=== PATIENT | female | born 1995 | race Caucasian/White ===

== ENCOUNTER 2021-12-30 15:15 | Emergency (ER) | payer OTHER, SELFPAY ==
[2021-12-30 15:17] VITALS: BP 174/112; PULSE 97; RESP 16; TEMP 36.8; O2SAT 99; BMI 43.5
--- NOTE | 2021-12-30 15:35 | RAD_ITS ---
HISTORY Injury/Pain. TECHNIQUE: XR Hand Min 3 Views. COMPARISON: None. FINDINGS: BONES : No acute fracture identified. Mineralization unremarkable. JOINTS: No dislocation. Joint spaces maintained. RAD/Hand Min 3 Views IMPRESSION: No acute fracture or dislocation identified in the right hand. Electronically Signed: Nikky Johns MD at 16:13 EDT ,
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
[2021-12-30 17:23] VITALS: PULSE 79; O2SAT 99
== END 2021-12-30 17:25 | disposition home or self-care (01) ==
PROVIDERS: Emergency Provider Emergency Medicine; Visit Provider Emergency Medicine
DX: S60.221A Contusion of right hand, initial encounter (principal); E66.01 Morbid (severe) obesity due to excess calories; Z68.41 Body mass index [BMI] 40.0-44.9, adult; F17.290 Nicotine dependence, other tobacco product, uncomplicated; W22.09XA Striking against other stationary object, initial encounter; M79.7 Fibromyalgia; K58.9 Irritable bowel syndrome, unspecified
CPT/HCPCS: 73130; 99282

== ENCOUNTER 2022-05-15 08:44 | Emergency (ER) | payer OTHER, MEDICAID, SELFPAY ==
[2022-05-15 08:45] VITALS: BP 134/105; PULSE 127; RESP 16; TEMP 36.5; O2SAT 96; BMI 41.7
--- NOTE | 2022-05-15 09:03 | EDS_ITS ---
HPI History of Present Illness Chief Complaint: Allergic Reaction Informant: patient Narrative Narrative: Presents for concerns of allergic reaction after receiving flu vaccine 3 AM. 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 No lip or tongue swelling. No medications taken. 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 She had a similar reaction when she was younger with just itching. Last year only had headache. Today does have a headache also. No fevers. She did not eat any food afterwards. History of rheumatoid arthritis currently not on immunosuppressive's last use was 3 months ago. History of GERD hypertension hypothyroidism. Prior similar symptoms: Yes [employer] [facility] Medical History Arthritis Fibromyalgia Hypothyroid IBS (irritable bowel syndrome) Home Medications diphenhydramine HCl 25 mg capsule (Benadryl) 25 mg PO TID PRN itching #30 caps 05/15/22 [Rx Last Taken Unknown] levothyroxine 150 mcg tablet 150 mcg PO DAILY 05/15/22 [History Last Taken Unknown] lisinopril 10 mg tablet 10 mg PO DAILY 05/15/22 [History Last Taken Unknown] omeprazole 20 mg capsule,delayed release 20 mg PO DAILY 05/15/22 [History Last Taken Unknown] prednisone 20 mg tablet 60 mg PO DAILY #12 tabs 05/15/22 [Rx Last Taken Unknown] Allergy/AdvReac Type Severity Reaction Status Date / Time cefdinir [From Omnicef] Allergy Hives Verified 05/15/22 08:45 Sulfa (Sulfonamide Allergy Hives Verified 05/15/22 08:45 Antibiotics) Social History Smoking Status: Current some day smoker tobacco type: e-cigarettes ROS ROS ED Constitutional Constitutional ED: Denies chills, fever(s) or sweats Eyes Eyes: Denies change in vision ENT ENT ED: Denies dysphagia or sore throat Cardiovascular Cardiovascular: Denies chest pain, leg edema, palpitations or racing heartbeat Respiratory/Chest Respiratory/Chest: Denies cough, dyspnea or dyspnea on exertion Gastrointestinal Gastrointestinal: Denies abdominal pain, diarrhea, nausea or vomiting Genitourinary Genitourinary ED: Denies dysuria, hematuria or urinary frequency Musculoskeletal Musculoskeletal: Denies back pain, extremity pain or neck pain Integumentary Reports rash; Denies wounds Neurologic Neurologic: Reports headache(s); Denies paresthesias or weakness EXAM Physical Exam Const Vital Signs: 05/15/22 08:45 05/15/22 11:42 Temperature 97.7 F L Temperature Source Temporal Pulse Rate 127 H 80 Respiratory Rate 16 16 Blood Pressure 134/105 H Blood Pressure Mean 114 Pulse Ox 96 97 Oxygen Delivery Method Room Air Positive well nourished and well developed General Appearance ED: well developed and NAD HEENT Reports moist mucous membranes HEENT Narrative: No lip or tongue swelling, airway patent. No stridor. normocephalic and atraumatic Eyes PERRL, EOMs intact bilaterally and conjunctivae normal General Eye ED: Yes normal appearance of both eyes Neck no lymphadenopathy and supple General: Negative for tenderness Chest Wall Chest: Negative for tenderness Resp normal respiratory effort and normal air movement Effort and Inspection: symmetric chest movement; Negative for respiratory distress Cardio regular rhythm and no murmurs Rate: tachycardic Peripheral Pulses: pulses 2+ throughout GI normal to inspection, nondistended, normoactive bowel sounds and non-tender Palpation: Negative for guarding or rebound tenderness present Back/Spine no CVA tenderness and no thoracic nor lumbar tenderness Extremity normal to inspection General Extremety ED: Negative for edema or tenderness General Extremity: Negative for edema Neuro oriented x3 and no sensory deficits noted Sensorium / Orientation: awake and alert Skin no wounds Skin Narrative: Erythema bilateral arms mild in the lower legs. No urticaria. Left shoulder no visualized puncture site or urticaria from area of injection. MDM MDM MDM Narrative Medical decision making narrative: Itchy rash generalized after influenza vaccine. There is no lip or tongue swelling. Oral Benadryl and prednisone given monitored improving symptoms. We will continue these medicines with his prescription. Outpatient follow-up. All questions were answered. Discharge Plan Triage Chief Complaint: Allergic Reaction ED Provider: Carlos Orellana Dx/Rx/DC Orders Clinical Impression: Allergic reaction, Adverse effect of influenza vaccine, Rash Instructions: ED ADVERSE DRUG REACTION Allergic Prescriptions: New prednisone 20 mg tablet 60 mg PO DAILY Qty: 12 0RF diphenhydramine HCl [Benadryl] 25 mg capsule 25 mg PO TID PRN (Reason: itching) Qty: 30 0RF No Action lisinopril 10 mg tablet 10 mg PO DAILY Label Comments: take 1 tablet by mouth once daily levothyroxine 150 mcg tablet 150 mcg PO DAILY Label Comments: take 1 tablet by mouth once daily omeprazole 20 mg capsule,delayed release(DR/EC) 20 mg PO DAILY Label Comments: take 1 capsule by mouth once daily Primary Care Provider: Care Physician,No Primary Referrals: Romelia Perez MD [Med Staff - Cloth Printer] - 3-5 Days Assessment,Health Risk [Non-Staff] - Disposition Disposition: Home, Self Care Discharge Date/Time: 05/15/22 11:43
[2022-05-15] MEDS: predniSONE 20 MG Tablet 60 MG PO (09:39)
[2022-05-15] MEDS: DiphenhydrAMINE 25 MG Capsule 50 MG PO (09:39)
[2022-05-15 11:42] VITALS: PULSE 80; RESP 16; O2SAT 97
== END 2022-05-15 11:43 | disposition home or self-care (01) ==
PROVIDERS: Emergency Provider Emergency Medicine; Visit Provider Emergency Medicine
DX: T80.62XA Other serum reaction due to vaccination, initial encounter (principal); M06.9 Rheumatoid arthritis, unspecified; T50.B95A Adverse effect of other viral vaccines, initial encounter; F17.290 Nicotine dependence, other tobacco product, uncomplicated
CPT/HCPCS: 99283

== ENCOUNTER 2022-05-27 17:30 | Emergency (ER) | payer OTHER, MEDICAID, SELFPAY ==
[2022-05-27 17:31] VITALS: BP 184/125; PULSE 136; RESP 18; TEMP 36.6; O2SAT 97; BMI 47.5
--- NOTE | 2022-05-27 17:49 | RAD_ITS ---
STUDY: X-RAY - RIGHT FOOT CLINICAL: Female, 26 years old. Lateral ankle pain after twisting injury. TECHNIQUE: 3 view(s) of the foot. COMPARISON: Right ankle, 05/27/2022. FINDINGS: Normal talus, calcaneus, and tarsal bones. Normal visualized subtalar, talonavicular, calcaneocuboid, tarsal and tarsometatarsal articulations. Normal metatarsi. Normal metatarsophalangeal joint of the great toe. Normal tibial and fibular sesamoid bones. Normal interphalangeal joint of the great toe. Normal phalanges of the great toe. Normal second through fifth metatarsophalangeal joints. Normal interphalangeal joints and phalanges of the lesser toes. There is soft tissue swelling over the lateral ankle. RAD/Foot min 3 Views IMPRESSION: Normal x-ray examination of the right foot. This is associated lateral ankle swelling. Electronically Signed: Miguel Acosta DO at 18:33 EDT ,
--- NOTE | 2022-05-27 17:49 | RAD_ITS ---
STUDY: X-RAY - RIGHT ANKLE REASON FOR EXAM: Female, 26 years old. Injury. Lateral ankle pain after twisting ankle. History of multiple sprains. TECHNIQUE: There are view(s) of the ankle. COMPARISON: Right foot, 05/27/2022. FINDINGS: Normal visualized distal tibia and fibula. Normal medial and lateral malleoli. Normal tibiotalar articulation and ankle mortise. Normal visualized talus and calcaneus. The visualized subtalar, talonavicular, calcaneocuboid and tarsal articulations are normal. There is anterolateral soft tissue swelling consistent with sprain. RAD/Ankle min 3 Views IMPRESSION: Soft tissue injury without fracture or dislocation. Electronically Signed: Miguel Acosta DO at 18:29 EDT ,
[2022-05-27] MEDS: Naproxen 250 MG Tablet 500 MG PO (17:53)
[2022-05-27] MEDS: traMADol 50 MG Tablet PO (17:53)
--- NOTE | 2022-05-27 18:47 | EDS_ITS ---
HPI History of Present Illness Chief Complaint: Lower Extremity Injury Informant: patient Occured/Mechanism Mechanism/Context: Yes fall Onset/Context/Timing Onset: Today Context: Sudden Onset Timing: Continuous Quality of Pain: Aching Location: R ankle Current Severity: Severe Maximum Severity: Severe Worsened by: movement Relieved by: remaining still Associated Symptoms Associated Symptoms: Negative for Parasthesia or Weakness Narrative Narrative: Patient was coming down steps she was maybe 4 steps up, dog got in the way, to avoid she jumped down 3-4 steps to the floor forcibly inverting her right ankle and feeling a crunch/pop. Not able to bear weight at the time of injury nor now. No other injury. [facility] Medical History Arthritis Fibromyalgia Hypothyroid IBS (irritable bowel syndrome) Home Medications diphenhydramine HCl 25 mg capsule (Benadryl) 25 mg PO TID PRN itching #30 caps 05/15/22 [Rx Last Taken Unknown] levothyroxine 150 mcg tablet 150 mcg PO DAILY 05/15/22 [History Last Taken Unknown] lisinopril 10 mg tablet 10 mg PO DAILY 05/15/22 [History Last Taken Unknown] omeprazole 20 mg capsule,delayed release 20 mg PO DAILY 05/15/22 [History Last Taken Unknown] prednisone 20 mg tablet 60 mg PO DAILY #12 tabs 05/15/22 [Rx Last Taken Unknown] Allergy/AdvReac Type Severity Reaction Status Date / Time cefdinir [From Omnicef] Allergy Hives Verified 05/27/22 17:31 Sulfa (Sulfonamide Allergy Hives Verified 05/27/22 17:31 Antibiotics) Social History Smoking Status: Current some day smoker tobacco type: e-cigarettes ROS ROS ED Constitutional Constitutional ED: Denies chills or fever(s) Musculoskeletal Musculoskeletal: Reports extremity pain; Denies neck pain Integumentary Denies Abrasions, rash or wounds Neurologic Neurologic: Denies paresthesias or weakness EXAM Physical Exam Const Vital Signs: 05/27/22 17:31 Temperature 98 F Temperature Source Temporal Pulse Rate 136 H Respiratory Rate 18 Blood Pressure 184/125 H Blood Pressure Mean 144 Pulse Ox 97 Oxygen Delivery Method Room Air Positive well nourished and well developed General Appearance ED: well developed and NAD Neck full ROM and supple Back/Spine normal ROM and normal to inspection Extremity Extremity Narrative: Swelling and tenderness about the right lateral malleolus, minimally tender to medial malleolus, nontender proximal fibula and other bony prominences of the lower leg. Mildly tender at the base of the fifth metatarsal but nowhere else in the foot. Significant tenderness with any movement around the ankle or foot. Intact dorsalis pedis pulse. Neuro oriented x3, no focal motor deficits and no sensory deficits noted Sensorium / Orientation: alert Psych mental status grossly normal and thought process normal Skin no wounds Rashes: no rashes MDM MDM MDM Narrative Medical decision making narrative: Three-view x-ray series of the right ankle and 3 view x-ray series of the right foot both negative on my interpretation radiology in agreement except for the soft tissue swelling noted clinically. She will be offered crutches, stirrup, analgesics here and outpatient follow-up. Radiography Diagnostic Testing: Clinical Impression(s) from Imaging Studies Ankle X-Ray 05/27/22 17:49 IMPRESSION: Soft tissue injury without fracture or dislocation. Electronically Signed: Miguel Acosta DO at 18:29 EDT Reading Location ID and State: [employer] / [employer] Tel [phone], Service support , Foot X-Ray 05/27/22 17:49 IMPRESSION: Normal x-ray examination of the right foot. This is associated lateral ankle swelling. Electronically Signed: Miguel Acosta DO at 18:33 EDT Reading Location ID and State: [employer] / [place] Tel [phone], Service support , Discharge Plan Triage Chief Complaint: Lower Extremity Injury ED Provider: Stone Montesinos Dx/Rx/DC Orders Clinical Impression: Right ankle sprain Instructions: ED Ankle Sprain (Adult) Prescriptions: No Action lisinopril 10 mg tablet 10 mg PO DAILY Label Comments: take 1 tablet by mouth once daily levothyroxine 150 mcg tablet 150 mcg PO DAILY Label Comments: take 1 tablet by mouth once daily omeprazole 20 mg capsule,delayed release(DR/EC) 20 mg PO DAILY Label Comments: take 1 capsule by mouth once daily prednisone 20 mg tablet 60 mg PO DAILY Qty: 12 0RF diphenhydramine HCl [Benadryl] 25 mg capsule 25 mg PO TID PRN (Reason: itching) Qty: 30 0RF Primary Care Provider: Haider Hollins NP Referrals: Haider Hollins NP, MARINE SERVICES TECHNICIAN-C [Primary Care Provider] - 10-14 Days if not better Disposition Disposition: Home, Self Care
== END 2022-05-27 19:16 | disposition home or self-care (01) ==
PROVIDERS: Emergency Provider Emergency Medicine; PCP Nurse Practitioner Family; Visit Provider Emergency Medicine
DX: S93.401A Sprain of unspecified ligament of right ankle, initial encounter (principal); F17.290 Nicotine dependence, other tobacco product, uncomplicated; W19.XXXA Unspecified fall, initial encounter
CPT/HCPCS: 73610; 73630; 99284

== ENCOUNTER 2022-06-08 10:11 | Outpatient (CLI) | payer OTHER, MEDICAID, SELFPAY ==
[2022-06-08 14:26] LABS: Vitamin B12 272 pg/mL (211-911)
== END 2022-06-08 23:59 | disposition home or self-care (01) ==
LOC: BIMLAB 10:13
PROVIDERS: PCP Nurse Practitioner Family; Referring Provider Nurse Practitioner Family; Visit Provider Nurse Practitioner Family
DX: M06.9 Rheumatoid arthritis, unspecified (principal); E56.9 Vitamin deficiency, unspecified
CPT/HCPCS: 82306; 82607

== ENCOUNTER → 2022-06-13 | Outpatient (CLI) | payer OTHER, MEDICAID, SELFPAY ==
[2022-06-13 18:17] LABS: Chlamydia Trachomatis by PCR Negative (Negative); Neisserai gonorrhoeae by PCR Negative (Negative); Probe Check PASS; Sample Adequacy Control PASS; Specimen Processing Control PASS
== END | disposition home or self-care (01) ==
LOC: LABSPEC 15:37
PROVIDERS: PCP Nurse Practitioner Family; Visit Provider Registered Nurse
DX: Z11.3 Encounter for screening for infections with a predominantly sexual mode of transmission (principal)
CPT/HCPCS: 87491; 87591

== ENCOUNTER → 2022-06-23 | Outpatient (CLI) | payer OTHER, MEDICAID, SELFPAY ==
--- NOTE | 2022-06-23 08:40 | MRI_ITS ---
STUDY: MRI RIGHT ANKLE WITHOUT CONTRAST REASON FOR EXAM: Female, 26 years old. OTHER INSTABILITY, RIGHT ANKLE TECHNIQUE: Standardized fat and water weighted pulse sequences were obtained in all 3 orthogonal planes. COMPARISON: None. FINDINGS: Normal subcutis adipose space. There is marrow edema in the medial side of the navicular, series 10 image There is tendinosis with thickening and partial tear of the distal posterior tibialis tendon. Normal flexor digitorum longus tendon. Normal flexor hallucis longus tendon. Normal peroneus longus and brevis tendons. Normal tibialis anterior tendon. Normal extensor hallucis longus tendon. Normal extensor digitorum longus tendons. Normal Achilles tendon and teno-osseous insertion. Normal plantar fascia. Normal plantar calcaneal tubercles. Normal intrinsic muscles of the rearfoot. Normal distal tibiofibular syndesmotic ligamentous complex. Normal lateral ligamentous complex. Normal subtalar ligaments and sinus tarsi. Normal deltoid ligamentous complexes. Normal plantar calcaneonavicular (spring) ligament. There is small joint effusion of the tibiotalar articulation. Normal talar dome. There is os trigonum. Normal subtalar articulations. Normal talonavicular articulation. Normal calcaneocuboid articulation. Normal navicular-cuneiform articulations. MRI/Lower Ext Joint Only (Routine) IMPRESSION: Tendinosis with partial tear of the distal tibialis posterior. Contusion versus stress injury/fracture of the navicular. Electronically Signed: Stone Cook MD at 14:00 EST ,
== END | disposition home or self-care (01) ==
LOC: MRI 07:45
PROVIDERS: PCP Nurse Practitioner Family; Referring Provider Podiatrist; Visit Provider Podiatrist
DX: M25.371 Other instability, right ankle (principal); M24.871 Other specific joint derangements of right ankle, not elsewhere classified
CPT/HCPCS: 73721

== ENCOUNTER → 2022-07-25 | Outpatient (CLI) | payer OTHER, MEDICAID, SELFPAY ==
[2022-08-03 13:58] LABS: HPV Reflexed? NOT INDICATED
== END | disposition home or self-care (01) ==
LOC: LABSPEC 15:44
PROVIDERS: PCP Nurse Practitioner Family; Visit Provider Registered Nurse
DX: Z12.4 Encounter for screening for malignant neoplasm of cervix (principal)
CPT/HCPCS: 88175; G0145

== ENCOUNTER → 2022-09-03 | Outpatient (CLI) | payer OTHER, MEDICAID, SELFPAY ==
--- NOTE | 2022-09-03 16:00 | CT_ITS ---
Examination: Right lower extremity CTA. INDICATION: Injured ankle 3 months ago from fall. TECHNIQUE: multiple axial images of the right lower extremity were obtained. Reformatted sagittal and coronal images were obtained and reviewed. A radiation dose optimization technique was used for this scan. COMPARISON: Radiographs dated May 27, 2022 and MRI dated June 23, 2022 FINDINGS: Within normal limits visualized distal tibia and fibula. Normal medial and lateral malleoli. Normal tibiotalar articulation and ankle mortise. Normal visualized talus and calcaneus. The subtalar, talonavicular, calcaneocuboid and tarsal articulations are within normal limits. No suspicious bony lesions are seen. No acute fracture or dislocation. No discrete fluid collections. CT/Extremity Lower without Contra IMPRESSION: Within normal limits examination. Electronically Signed: Laura Javed MD at 9:54 EST ,
== END | disposition home or self-care (01) ==
LOC: CT 15:58
PROVIDERS: PCP Nurse Practitioner Family; Referring Provider Podiatrist; Visit Provider Podiatrist
DX: S82.64XA Nondisplaced fracture of lateral malleolus of right fibula, initial encounter for closed fracture (principal)
CPT/HCPCS: 73700

== ENCOUNTER 2022-10-15 12:00 | Outpatient (RCR) | payer OTHER, MEDICAID, SELFPAY ==
--- NOTE | 2022-08-30 13:35 | HP.PTEVAL_ITS ---
Patient's Visit Information SHRAVAN SMITH is a 26 year old F referred to Physical Therapy by Dr. Ced Romero DPM with a diagnosis of Right ankle instability. Date of Evaluation: 08/30/22 Physical Therapist: Noé Nicolas - Visit Plan Frequency: 2-3x /Week Duration: 6 Weeks Plan: Continue to work on improving right ankle ROM, ankle strength, and balance. Use manual therapy and modalities as needed for pain control. - Subjective Pt. is a 26 y.o. female who originally injured her right ankle on 05-27-22 when she was going down the stairs and her sister's dog got under her and she tripped and fell. She eventually had imaging which showed distal fibula fracture. She notes that her ankle has been bothering her and painful ever since. Pt. is currently in a CAM boot when she is working or on her feet for a long period of time. Her PLOF includes history of multiple bilateral ankle sprains in the past. Pt. denies any other recent falls. She has difficulty with walking, standing for long periods of time, walking on uneven ground, ascending/descending stairs, squatting, driving, housework, and work activity. 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 Her goal with physical therapy is to get out of the boot and to be able to function normally. She has not had any recent physical therapy since her injury. Pt. rates lateral right ankle pain at 8/10 currently, at worst 9/10, at best 3/10 and describes the pain as throbbing and sharp. Pt. is currently taking Tramadol or Tylenol as needed. 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 Pt. lives with her sister, sister's boyfriend, and her dad in a two story home. Her hobbies include playing video games and reading. - Objective Palpation- Tenderness over right distal lateral malleolus and ATFL and calcaneal fibular ligaments. Left AROM DF 12 degrees, PF 40 degrees, Inv 43 degrees, Ev 23 degrees. Right AROM DF 5 degrees, PF 38 degrees, Inv 15 degrees, Ev 8 degrees. Left ankle strength DF [5/5], PF [5/5], Inv [5/5], Ev [5/5]. Right ankle strength DF [3-/5], PF [3/5], Inv [3-/5], Ev [3/5]. Left hip strength fle xion [5/5], abduction [5/5], adduction [5/5], extension [5/5], knee flexion [5/5], knee extension [5/5]. Right hip strength flexion [5/5], abduction [5/5], adduction [5/5], extension [5/5], knee flexion [5/5], knee extension [5/5]. Special tests- Anterior drawer [+], Talar tilt [+], Syndemosis squeeze [-]. Tandem stance on right [30 secs], left [30 secs]. SLS on right [4 secs], left [30 secs]. Gait- Pt. ambulates with CAM boot of right lower extremity. Stairs- Pt. ascends/descends stairs with step to gait pattern and unilateral handrail. - Balance/Special Test Scores Lower Extremity Functional Score: 9 - Goals Goal 1:: Pt. will improve right ankle DF > 10 degrees in order to improve gait mechanics. Goal Time Frame: 4-6 Weeks Goal 2:: Pt. will be able to ambulate with no CAM boot or gait deviations. Goal Time Frame: 4-6 Weeks Goal 3:: Pt. will improve right ankle strength to 4/5 for all motions in order to improve ADL's. Goal Time Frame: 4-6 Weeks Goal 4:: Pt. will be able to stand/walk at least 20 minutes with right ankle pain < 5/10. Goal Time Frame: 4-6 Weeks Goal 5:: Pt. will be able to complete a full day of work activity with right ankle < 5/10. Goal Time Frame: 4-6 Weeks Goal 6:: Pt. will improve LEFS score <60% disability in order to improve ADL's and work activity. Goal Time Frame: 4-6 Weeks - Rehabilitation Potential Physical Therapy Diagnosis: Decreased right ankle ROM, LE strength, balance, and pain Rehabilitation Potential: Good - Anticipated Interventions Patient/Client Instruction: Educate patient on: Condition, Plan of Care, Benefits of Fitness Program For the Purpose of:: To decrease pain, To increase ROM, To improve ability to perform ADL's, To improve performance and independence with ADL's, To increase flexibility/ROM, To improve balance, To improve safety with gait, To assume or resume ADL's, To improve tolerance to ADL's Therapeutic Exercise to Include: Strength training, Balance training, Gait and locomotor training, Passive ROM, Active ROM Comment: Focus on improving right ankle ROM, ankle strengthening, and balance. For the Purpose of:: To decrease pain, To decrease swelling/inflammation, To increase ROM, To improve ability to perform ADL's, To improve performance and independence with ADL's, To improve gait and locomotor functions, To increase flexibility/ROM, To improve balance, To improve safety with gait, To assume or resume ADL's, To improve safety, To improve tolerance to ADL's Functional Training to Include: ADL Training, Gait training For the Purpose of:: To decrease pain, To increase ROM, To improve ability to perform ADL's, To improve performance and independence with ADL's, To increase flexibility/ROM, To assume or resume ADL's, To improve tolerance to ADL's Manual Therapy Techniques to Include: Mobilization, Soft tissue mobilization For the Purpose of:: To decrease pain, To decrease swelling/inflammation, To increase ROM, To improve ability to perform ADL's, To improve performance and independence with ADL's, To increase flexibility/ROM, To assume or resume ADL's, To improve tolerance to ADL's Orthotics: Brace Supportive Equipment: Compression garments For the Purpose of:: To decrease pain, To decrease swelling/inflammation TENS: Yes IF ES: Yes Cryotherapy (ice pack, ice massage): Yes Ultrasound (thermal/non thermal): Yes For the Purpose of:: To decrease pain, To decrease swelling/inflammation, To increase ROM, To improve ability to perform ADL's, To improve performance and independence with ADL's, To increase flexibility/ROM, To improve balance, To assume or resume ADL's, To improve safety, To improve tolerance to ADL's Thank you for the opportunity to evaluate your patient. For Medicare and Medicare HMO plans, please review the plan of care and approve it. It will need to be FAXED BACK to us at [phone] for Medicare purposes. For Medicare only, by signing this I certify the plan of care. Please let me know if there are questions or concerns regarding this plan of care. Physician Signature: Date:
--- NOTE | 2022-10-15 12:41 | HP.PTDCSUM ---
It has been my pleasure to treat SHRAVAN SMITH referred by Dr. Ced Romero DPM, with the diagnosis of Right ankle instability for a total of 13 visit(s). Discharge Date: Please see the following information for a summary of their discharge status. Subjective: Patient reports she still has swelling, pain and weakness. Worst: 9/10 in the last week- when she is working on it and standing on it. She is on it all the time at work. Considering exploratory surgery. R ankle Pain Intensity (Out of 10): 7 % Improvement: 0 Objective/Function: Palpation- Tenderness over right distal lateral malleolus and ATFL and calcaneal fibular ligaments. Left AROM DF 10 degrees, PF 40 degrees, Inv 43 degrees, Ev 23 degrees. Right ankle strength DF [3-/5], PF [3/5], Inv [3-/5], Ev [3/5] all with significant pain. Special tests- Anterior drawer [+], Talar tilt [+], Syndemosis squeeze [-]. Tandem stance on right [30 secs], left [30 secs]. SLS on right [4 secs] with pain. Gait- croc shoes today- decreased stance on the right LE with poor heel/toe. Girth: Figure 8: 53 cm, Mets: 24 cm, Mall: 27 cm Goal 1:: Pt. will improve right ankle DF > 10 degrees in order to improve gait mechanics. Goal Progress: Not Progressing Goal 2:: Pt. will be able to ambulate with no CAM boot or gait deviations. Goal Progress: Progressing Goal 3:: Pt. will improve right ankle strength to 4/5 for all motions in order to improve ADL's. Goal Progress: Not Progressing Goal 4:: Pt. will be able to stand/walk at least 20 minutes with right ankle pain < 5/10. Goal Progress: Not Progressing Goal 5:: Pt. will be able to complete a full day of work activity with right ankle < 5/10. Goal Progress: Not Progressing Goal 6:: Pt. will improve LEFS score <60% disability in order to improve ADL's and work activity. Goal Progress: Not Progressing Plan: 10/15/22: return to MD for further evaluation. Continue to work on improving right ankle ROM, ankle strength, and balance. Use manual therapy and modalities as needed for pain control. If there are questions or concerns regarding this patient's physical therapy, please feel free to call me at [phone]. Thank you for the referral of this patient. Sincerely, Tamiko Ortiz, RITOT Balance/Gait/Functional tests - Balance/Special Test Scores Lower Extremity Functional Score: 23
== END 2022-10-15 19:00 | disposition home or self-care (01) ==
LOC: PT 12:00
PROVIDERS: PCP Nurse Practitioner Family; Referring Provider Podiatrist; Visit Provider Podiatrist
DX: M25.371 Other instability, right ankle (principal)
CPT/HCPCS: 97014; 97110; 97162; 97164; G0283

== ENCOUNTER → 2022-11-22 | Outpatient (CLI) | payer OTHER, MEDICAID, SELFPAY ==
[2022-11-22 16:37] LABS: Absolute Lymphocyte Count 2.77 X10^3/uL (0.83-4.51); Absolute Neutrophil Count 3.1 X10^3/uL (2.0-7.7); Basophil# 0.07 X10^3/uL; Eosinophil# 0.13 X10^3/uL; Eosinophils% 1.9 % (0-5); Hematocrit 40.9 % (37-47); Hemoglobin 13.6 g/dL (12.0-15.0); Lymphocyte # 2.77 X10^3/ul (0.83-4.51); Lymphocyte % 41.5 % (19-41); Mean Corp Hgb Conc 33.3 g/dL (32-36); Mean Corpuscular Hgb 30.5 pg (27.0-32.0); Mean Corpuscular Volume 91.7 fL (81-99); Mean Platelet Vol. 10.3 fl (6.2-12.0); Monocyte# 0.58 X10^3/uL; Monocyte% 8.7 % (0-10); NRBC Flagged by Analyzer 0 % (0-5); Neutrophil # 3.11 X10^3/uL (2.7-7.7); Neutrophil % 46.6 % (47-70); Platelet Count 330 K/mm3 (150-450); RBC Distribution Width CV 11.9 % (11.6-14.6); RBC Distribution Width SD 40.1 fl (35.1-43.9); Red Blood Count 4.46 M/mm3 (4.2-5.4); White Blood Count 6.7 K/mm3 (4.4-11.0)
[2022-11-22 17:02] LABS: Vitamin B12 269 pg/mL (211-911); Vitamin D,25 Hydroxy 20.8 ng/mL
[2022-11-22 17:07] LABS: ALB/GLOB Ratio 1.3 RATIO (0.9-2.4); AST(SGOT) 25 U/L (15-37); Alanine Aminotransfer ALT/SGPT 44 U/L (13-56); Albumin, Serum 4.3 g/dL (3.2-5.0); Alkaline Phosphatase 72 U/L (45-117); Anion Gap 5 (5-15); BUN 13 mg/dL (7-18); BUN/Creat Ratio 15.2 RATIO (10-20); Calcium,Total 8.9 mg/dL (8.5-10.1); Chloride 107 mmol/L (98-107); Creatinine, Serum 0.86 mg/dL (0.55-1.02); EST Glomerular Filtration Rate 85 mL/min (>60); Est Glom Filt Rate - Afr Amer 102 mL/min (>60); Globulin 3.3 g/dL (2.2-4.2); Glucose 84 mg/dL (74-106); Potassium 3.6 mmol/L (3.5-5.1); Protein, Total 7.6 g/dL (6.4-8.2); Sodium Level 138 mmol/L (136-145); Thyroid Stim Hormone (TSH) 0.46 uIU/mL (0.358-3.74)
== END | disposition home or self-care (01) ==
LOC: BIMLAB 14:47
PROVIDERS: PCP Nurse Practitioner Family; Visit Provider Nurse Practitioner Family
DX: Z01.818 Encounter for other preprocedural examination (principal); E56.9 Vitamin deficiency, unspecified
CPT/HCPCS: 36415; 80053; 82306; 82607; 84443; 85025

== ENCOUNTER 2022-12-07 05:31 | Day surgery (SDC) | payer OTHER, MEDICAID, SELFPAY ==
[2022-12-07] VITALS (8 sets, daily range): BP systolic 109–146; BP diastolic 70–102; PULSE 74–94; RESP 16–18; TEMP 36.2–36.6; O2SAT 97–100; BMI 43.4
[2022-12-07 06:16] LABS: Internal QC Validated? YES +Cl - CLEAR BKGD; Pregnancy, Urine Negative Negative
[2022-12-07] MEDS: Lactated Ringers 1,000 ML 15 ML IV (06:20)
--- NOTE | 2022-12-07 06:30 | RAD_ITS ---
STUDY: X-RAY - RIGHT ANKLE REASON FOR EXAM: Female, 27 years old. lateral ankle stabilization TECHNIQUE: 3 view(s) of the ankle. 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 . RAD/Ankle min 3 Views IMPRESSION: Fluoroscopy during ankle stabilization. Electronically Signed: Sebastián Weir MD at 20:42 EDT ,
[2022-12-07] MEDS: BACITRACIN/POLYMYXIN B 15 GM Tube 1 APPLIC (09:51)
--- NOTE | 2022-12-07 10:13 | OP.PCM_ITS ---
Problems Associated Problem List Diagnoses (1) Other acute postprocedural pain: (2) Ankle pain, right: (3) Right ankle instability: Report of Operation Date of Procedure: 12/07/22 Pre-Operative Diagnosis: 1) ankle pain, right 2) Right lateral ankle instability Post-Operative Diagnosis: same Surgery/Procedure Performed:: 1) Right ankle arthroscopy (anterior approach) 2) Lateral ankle stabilization Description of Surgical Findings:: Patient suffered acute inversion injury with significant bruising and edema which failed outpatient immobilization and physical therapy. Patient underwent MRI upon personal review there is disruption of the ATFL ligament. Patient decided to proceed with ankle arthroscopy with lateral ankle stabilization due to continued pain. Patient was brought back to the operating placed comfortably in supine position on the operating room table. Patient induced under general anesthesia. Preoperatively patient received a popliteal block. Right lower extremity was bumped to knock out any external rotation well-padded right thigh tourniquet was applied. Right lower extremity was then scrubbed prepped draped using typical aseptic fashion. Once cleared by anesthesia right lower extremity was elevated exsanguinated tourniquet was inflated to 300 mmHg. Upon palpation the distal tibial tibialis anterior tendon was noted as it traversed across the ankle joint the medial talar dome was palpated and just superior to this a small ankle portal incisional was drawn this placement was confirmed with use of a spinal needle and this incision was made with stab incision using 15 blade and was deepened using hemostats avoiding any neurovascular structures the joint capsule itself was penetrated with the hemostats and subsequently obturator and trocar. It should be noted that approximately 20 cc of normal sterile saline were injected into the joint prior to doing this to insufflate the joint. Once we were in the joint a Martha scope was placed in the joint and this was prefers from medial to lateral across the joint and a lateral portal was made. Examination of the medial anterior and lateral gutters of the joint including the talar dome and tibial plateau portions were examined no obvious osteochondral lesions noted or chondral defects. There was noted to be diffuse chronic synovitis throughout the joint and this was arthroscopically debrided with a shaver from the anterior lateral joint and scope medial joint starting from medial to lateral. Upon completion of debridement there is noted to be improved motion of the joint without any impinging synovitis anteriorly. Incisional sites were then flushed after the scope and shaver were removed. Closed using simple interrupted 4-0 nylon. Next attention was taken to the lateral ankle where the lateral ankle ligaments were stressed under fluoroscopic imaging and there is noted to be significant varus talar tilting greater than 5 degrees confirmed fluoroscopically as well as anterior drawer sign greater than 5 mm confirmed on lateral fluoroscopic imaging. A curvilinear incision curving from posterior to anterior aspect first along the distal fibula towards the sinus tarsi was drawn and made with a 15 blade through the epidermis dermis and subcutaneous tissue blunt dissection was taken down to the level of deep fascia where the inferior extensor retinaculum was identified. This was transected along with a full- thickness periosteal periosteal flap along the distal anterior fibula to allow for anchor placement the ruptured ATFL was noted at this time as well. First a internal brace anchor was placed in the anterior lateral talar dome avoiding the articular surface was confirmed using guidewire placement and lateral and AP fluoroscopic imaging once his anchor was placed the sutures were laid off to the side and attention was taken to the fibula where 2 knotless anchors were applied along the distal tibial or distal lateral malleolar tip proximately 1.5 cm away from each other. And then finally the hole for the final anchor for the internal brace was drilled and tapped but not placed until Brostr?m procedure was performed next the suture from the knotless anchors was passed through the ruptured ATFL ligament as well as the inferior extensor retinaculum and passed as well through the full-thickness flap on the distal fibular tip in a pants over vest technique starting with the superior suture anchor and with the foot held in a dorsiflexed knee everted position this was tightened down and the suture was passed within 2 the knotless anchor in this corrected position same process was performed for the second distal suture anchor. This was performed using manufactures guidelines. Next the last anchor for the internal brace was applied with the foot held in neutral position and adequate tension maintaining reduction and stability of the lateral ankle ligament complex in order to augment the repair. This anchor was applied in the residual suture was trimmed. Tourniquet was then let down any bleeders were cauterized and incision was flushed with copious amounts of normal deep closure was performed with buried interrupted 4-0 Vicryl subcutaneous closure was performed with continuous 4-0 Vicryl skin closure performed with horizontal mattress using 4-0 nylon. Incision was dressed with bacitracin Adaptic 4 x 4's Kerlix and a and a well-padded posterior splint with the foot held in a dorsiflexed everted position. Patient was transferred to PACU vital signs stable vascular status intact all digits for further monitoring prior to discharge patient tolerated procedure and anesthesia well in apparent satisfactory condition. Patient will be discharged home and will follow-up in 1 week. She will maintain nonweightbearing status until that time. No complications. Arthrex internal brace with 2 knotless suture anchors applied to the distal fibula Findings demonstrated significant laxity to the lateral ankle ligament complex as confirmed by the saved AP and lateral fluoroscopic imaging is during stressing Type of Anesthesia: General/Regional Special Medications: none Specimen's removed: none Drains: none Estimated Blood Loss (mL): minimal Description of Procedure: see above Grafts/Implants Used: Arthrex internal brace, 2 knotless sutures anchors from Arthrex Complications None Admit VTE Documentation VTE Present on Admission: Yes VTE Mechan Device Prophylaxis: SCD's VTE Pharm Prophylaxis ordered?: Yes
== END 2022-12-07 12:09 | disposition home or self-care (01) ==
LOC: SDC 05:31 → AC 05:32
PROVIDERS: Anesthesiology; PCP Nurse Practitioner Family; Referring Provider Podiatrist; Visit Provider Podiatrist
PROC: (CPT 29999; principal; 2022-12-07 07:15)
DX: M25.371 Other instability, right ankle (principal); M06.9 Rheumatoid arthritis, unspecified; G89.18 Other acute postprocedural pain; M25.571 Pain in right ankle and joints of right foot; E03.9 Hypothyroidism, unspecified; K21.9 Gastro-esophageal reflux disease without esophagitis; M79.7 Fibromyalgia; F17.210 Nicotine dependence, cigarettes, uncomplicated; E56.9 Vitamin deficiency, unspecified; I10 Essential (primary) hypertension
CPT/HCPCS: 27698; 01470; 64450; 73610; 76000; 81025; C1713; J7120; J2405

== ENCOUNTER → 2023-01-17 | Outpatient (CLI) | payer OTHER, SELFPAY | END | disposition home or self-care (01) | PROVIDERS: PCP Nurse Practitioner Family; Visit Provider Podiatrist | DX: L97.212 Non-pressure chronic ulcer of right calf with fat layer exposed (principal) | CPT/HCPCS: 87070; 87075; 87077; 87186; 87205 ==

== ENCOUNTER 2023-02-08 13:30 | Outpatient (RCR) | payer OTHER, SELFPAY ==
--- NOTE | 2023-01-02 14:12 | HP.PTEVAL ---
Patient's Visit Information SHRAVAN SMITH is a 27 year old F referred to Physical Therapy by Dr. Ced Romero DPM with a diagnosis of R ANKLE INSTABILITY. Date of Evaluation: 01/02/23 Physical Therapist: Sophia Maynard PT, Cert MDT - Visit Plan Frequency: 3x /Week Duration: 2-4 Months Plan: GAIT TRAINING WITH SLOW PROGRESSION OF WEIGHT BEARING TOLERATED. R LE ROM, STRETCHING AND STRENGTHENING TO HELP MEET SET GOALS. 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 States they are going to post her job so she isn't sure what will be available when she is cleared to return to work. States that at this point the surgeon isn't sure when she will be able to go back. Has follow up with surgeon again in 2 weeks to see how it is healing. Reports that when she saw the surgeon Saturday he said she could start touching her foot down with walking with boot and start to slowly weight bear as tolerated but not to push it. Date of injury: May 27 2022. Off work 05/27/22 to 08/17/22. 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 Surgery: S/P R ankle arthroscopic debridement and lateral ankle stabilization. Present symptoms: RIGHT LATERAL ANKLE PAIN. SOME TINGLING IN DIGITS 2 AND 3 PROVOKED WITH WALKING X ABOUT 2 HOURS FOR THE FIRST TIME YESTERDAY. DENIES BACK, HIP AND KNEE PAIN OTHER THAN CHRONIC JA. Pain Scale: WORST 9/10, LEAST 6/10. Currently: 7/10. Is it getting better, worse or staying the same: STAYING THE SAME. Commenced as a result of: FELL DOWN STEPS TO AVOID DOG - DESCRIBES HYPER PLANTAR FLEXING ANKLE AND HEARD A POP AND A CRUNCH. Symptoms at onset: PAIN AND IMMEDIATE SWELLING (STATES 6 WKS LATER DX'D WITH R FIBULAR HEAD FX). Worse: WEIGHT BEARING, HANGING DOWN TOO LONG, TRYING TO MOVE ANKLE OR TOES, TOUCHING IT. Better: ICE, ELEVATION, OXI, ADVIL, TYLONOL. Disturbed sleep: YES. 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 Gait: GETTING AROUND ON CRUTCHES AND STARTING TO LIGHTLY TOUCH FOOT DOWN WITH BOOT ON. Bowel or Bladder Dysfunction: NO. Imaging: X-RAYS, CAT SCAN AND MRI AT [facility] BEFORE SURGERY. PMH/Recent major surgery: Juvenile Arthritis, IBS, SPONDYLOLISTHESIS L5, HTN. - Objective THIS PATIENT AMBULATES INDEP'LY INTO PT TTWB R LE WITH ANH AXILLARY CRUTCHES. She is accompanied by her dad. SHE IS ABLE TO INDEP'LY DON AND DOFF BOOT. INDEP TRANSFERS. SHE HAS A 1X 1/4 GAP IN HER R LATERAL ANKLE INCISION. IT IS COVERED WITH band aid THAT SHE REMOVED FOR THIS PT TO EXAMINE. SHE REPORTS DR. ROMERO JUST TOLD HER TO KEEP IT COVERED UNTIL IT HEALS. PATIENT REQUESTING NOT TO HAVE THE OUTSIDE OF HER RIGHT ANKLE TOUCHED DUE TO HYPERSENSATIVITY. ANH LE LIGHT TOUCH SENSATION IS INTACT OTHERWISE BUT PATIENT REPORTS SOME DECREASED LIGHT TOUCH OF R FOOT COMPARED TO L. SHE HAS MODERATE R FOOT AND ANKLE SWELLING COMPARED TO LEFT. MMT: R HIP 4/5, R KNEE 4/5, R ANKLE - NT. AROM R FOOT/ANKLE: PF - 20 DEG, DF - TO NEUTRAL, IV 8 DEG, EV 3 DEG. PATIENT ABLE TO ACTIVELY MOVE ALL TOES. TREATMENT: INSTRUCTED PATIENT TO MONITOR WOUND CLOSELY FOR SIGNS OF INFECTION AND SEEK URGENT MEDICAL ATTENTION NEEDED. INSTRUCTED PATIENT IN AROM OF TOES, ANKLE PUMPS X 10 TO 20, AND ANKLE ALPHABET 4-6 TIMES A DAY TOLERATED. PATIENT TOLERATED EX WELL TODAY AND COMMUNICATED A GOOD UNDERSTANING OF HOME INSTRUCTIONS. - Balance/Special Test Scores Lower Extremity Functional Score: 3 - Goals Goal 1:: DECREASE R FOOT AND ANKLE PAIN AND SWELLING. Goal Time Frame: 8-12 Weeks Goal 2:: INCREASE FUNCTIONAL ROM OF R ANKLE TO EASE ADL'S. Goal Time Frame: 8-12 Weeks Goal 3:: IMPROVE R FOOT AND ANKLE FUNCTIONAL STRENGTH TO EASE ADL'S. Goal Time Frame: 8-12 Weeks Goal 4:: INDEP AND SAFE GAIT ON LEVEL SURFACES AND UP AND DOWN STEPS WITH LEAST AD AND DEVIATIONS. Goal Time Frame: 8-12 Weeks Goal 5:: PATIENT WILL BE INDEP WITH HEP FOR CONTINUED IMPROVEMENT ONCE FORMAL PHYSICAL THERAPY CONCLUDES. Goal Time Frame: 8-12 Weeks - Anticipated Interventions Patient/Client Instruction: Educate patient on: Condition, Plan of Care, Risk Factors For the Purpose of:: To improve self management Therapeutic Exercise to Include: Strength training, Endurance training, Balance training, Flexibilty training, Gait and locomotor training, Neuromotor development, In an aquatic setting Comment: CONSIDER AQUATIC THERAPY IF NEEDED ONCE WOUND IS HEALED. For the Purpose of:: To decrease pain, To decrease swelling/inflammation, To increase ROM, To improve muscle performance and motor function, To increase tolerance to activity/condition/position, To improve ability of physical actions for home/community/work/leisure, To improve gait and locomotor functions Cryotherapy (ice pack, ice massage): Yes For the Purpose of:: To decrease pain, To decrease swelling/inflammation Thank you for the opportunity to evaluate your patient. For Medicare and Medicare HMO plans, please review the plan of care and approve it. It will need to be FAXED BACK to us at [phone] for Medicare purposes. For Medicare only, by signing this I certify the plan of care. Please let me know if there are questions or concerns regarding this plan of care. Physician Signature: Date:
--- NOTE | 2023-01-30 14:04 | HP.PTREVAL_ITS ---
Dr. Ced Romero, DPM, It has been my pleasure to treat SHRAVAN SMITH over the last 11 visits for R ANKLE INSTABILITY. Please see the progress note below for an update on the physical therapy plan of care! Subjective: PATIENT REPORTS SHE WAS PLANNING TO RETURN TO WORK SATURDAY BUT SHE FOUND OUT YESTERDAY THAT HER JOB IS NO LONGER AVAILABLE. 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 PATIENT REPORTS SHE HAS AN YESSENIA'T FOR WOUND FOLLOW UP SATURDAY AND IF IT IS LOOKING BETTER HE SAID HE WAS HOPEFUL ABOUT SENDING/RELEASING HER BACK TO WORK. PATIENT REPORTS SHE WILL NOT BE ABLE TO CONTIINUE PT AFTER THIS MONTH IF SHE DOES NOT HAVE HEALTH INS. PATIENT REPORTS SHE STILL HAS AN OPEN WOUND. STATES THE SURGEON THINKS HER BODY WAS REJECTING THE MESH ORIGINALLY AND IS STARTING TO ACCEPT IT NOW. PATIENT STATES SHE IS HAPPY WITH THE THERAPY SHE HAS BEEN GETTING AND THE THERAPISTS AND FEELS HER SESSIONS ARE CHALLENGING (NOT TOO EASY AND NOT TOO HARD). Objective/Function: PATIENT WAS SEEN TODAY FOR RE-ASSESSMENT OF PROGRESS TOWARD THE SET PT GOALS AND THE NEED FOR FURTHER PHYSICAL THERAPY VS READINESS FOR DISCHARGE. UPON EXAM TODAY: R LATERAL ANKLE OPEN AREA APPROX 1/2 X 1/2 THAT IS YELLOW AND THERE IS DRAINAGE ON HER BANDAGE. NO REDNESS AROUND OPEN AREA. AROM: DF 5 DEG, PF 50 DEG, INV 44 DEG, EV 6 DEG. PATIENT IS AMBUALTING INDEP'LY ON LEVEL SURFACES WITH NEAR SYMMETRICAL WEIGHT BEARING TIME, FAIR CADANCE AND GOOD HEEL STRIKE, FOOT FLAT, TOE OFF PATTERNING. SHE IS ABLE TO ASCEND STEPS RECIPRICALLY WITH LITTLE TO NO UE ASSIST BUT LEADING UP WITH R LE THERE IS SOME HESITATION. SHE IS ABLE TO DESCEND STEPS WITH ONE UE ASSIST BUT SHE DOES NOT HAVE ENOUGH R ANKLE STRENGHT OR DORSIFLEXION RANGE TO AVOID KATIE ATION WHEN LEADING DOWN WITH LLE. OSWESTRY SCORE HAS IMPROVED FROM 3 TO 48. SHE IS A GOOD CANDIDATE TO CONTINUE PT WORKING TOWARD SAME GOALS. PATIENT IS AGREEABLE. Plan Plan: CONT PER POC THIS MONTH FOCUSING ON HEP. GAIT TRAINING WITH SLOW PROGRESSION OF WEIGHT BEARING TOLERATED. R LE ROM, STRETCHING AND STRENGTHENING TO HELP MEET SET GOALS. Balance/Gait/Functional tests - Balance/Special Test Scores Lower Extremity Functional Score: 48 Goals Goal 1:: DECREASE R FOOT AND ANKLE PAIN AND SWELLING. Goal Time Frame: 8-12 Weeks Goal Progress: Progressing Goal 2:: INCREASE FUNCTIONAL ROM OF R ANKLE TO EASE ADL'S. Goal Time Frame: 8-12 Weeks Goal Progress: Progressing Goal 3:: IMPROVE R FOOT AND ANKLE FUNCTIONAL STRENGTH TO EASE ADL'S. Goal Time Frame: 8-12 Weeks Goal Progress: Progressing Goal 4:: INDEP AND SAFE GAIT ON LEVEL SURFACES AND UP AND DOWN STEPS WITH LEAST AD AND DEVIATIONS. Goal Time Frame: 8-12 Weeks Goal Progress: Progressing Goal 5:: PATIENT WILL BE INDEP WITH HEP FOR CONTINUED IMPROVEMENT ONCE FORMAL PHYSICAL THERAPY CONCLUDES. Goal Time Frame: 8-12 Weeks Goal Progress: Progressing Anticipated Interventions Patient/Client Instruction: Educate patient on: Condition, Plan of Care, Risk Factors For the Purpose of:: To improve self management Therapeutic Exercise to Include: Strength training, Endurance training, Balance training, Flexibilty training, Gait and locomotor training, Neuromotor development, In an aquatic setting Comment: CONSIDER AQUATIC THERAPY IF NEEDED ONCE WOUND IS HEALED. For the Purpose of:: To decrease pain, To decrease swelling/inflammation, To increase ROM, To improve muscle performance and motor function, To increase tolerance to activity/condition/position, To improve ability of physical actions for home/community/work/leisure, To improve gait and locomotor functions Cryotherapy (ice pack, ice massage): Yes For the Purpose of:: To decrease pain, To decrease swelling/inflammation Please do not hesitate to contact me at [phone] by phone or if you have questions or concerns regarding this new plan of care! Sincerely, Sophia Maynard, PT, Cert MDT
--- NOTE | 2023-05-03 07:26 | HP.PT.NRP ---
Patient Information Patient Information: SHRAVAN SMITH was seen in my office for initial evaluation on 01/02/23. The following Plan of Care was established for this patient: POC Established Initial Frequency: 3x /Week Initial Duration: 2-4 Months Anticipated Interventions Patient/Client Instruction: Educate patient on: Condition, Plan of Care and Risk Factors For the Purpose of:: To improve self management Therapeutic Exercise to Include: Strength training, Endurance training, Balance training, Flexibilty training, Gait and locomotor training, Neuromotor development and In an aquatic setting For the Purpose of:: To decrease pain, To decrease swelling/inflammation, To increase ROM, To improve muscle performance and motor function, To increase tolerance to activity/condition/position, To improve ability of physical actions for home/community/work/leisure and To improve gait and locomotor functions Cryotherapy (ice pack, ice massage): Yes For the Purpose of:: To decrease pain and To decrease swelling/inflammation Last Seen Last Seen: This patient was last seen in our office 02/08/23. Pertinent comments regarding their Physical therapy will appear below: This patient has not returned to Physical Therapy and is appropriate to return to MD for further follow-up as needed. At this point I will be discontinuing this patient from physical therapy. I would be happy to see this patient again in the future if found appropriate by the physician. Thank you! Sophia Maynard, PT, Cert MDT Balance/Gait/Functional tests Balance/Special Test Scores Lower Extremity Functional Score: 55
== END 2023-02-08 19:00 | disposition home or self-care (01) ==
LOC: PT 13:30
PROVIDERS: PCP Nurse Practitioner Family; Referring Provider Podiatrist; Visit Provider Podiatrist
DX: M25.371 Other instability, right ankle (principal)
CPT/HCPCS: 97110; 97162; 97164; 97530